=== PATIENT | female | born 1945 ===

== ENCOUNTER 2020-07-24 10:15 | Inpatient (IN) | payer OTHER ==
[~2020-07-24] VITALS: Ht 165.1 cm; Wt 80.7 kg
[2020-07-24] MEDS ORDERED: DOSTINEX PO (12:22)
[2020-07-24] MEDS ORDERED: SERAQUEL PO (12:22)
[2020-07-24] MEDS ORDERED: FOSAMAX PO (12:23)
[2020-07-24] MEDS ORDERED: TOPAMAX25 MG PO (12:23)
[2020-07-24] MEDS ORDERED: CAMBIA50 MG PO (12:24)
[2020-07-24] MEDS ORDERED: SIMVASTATIN5 MG PO (12:25)
[2020-07-30] MEDS ORDERED: MECLIZINE HCL25 MG (07:57)
[2020-07-30] MEDS ORDERED: QUETIAPINE FUM100 MG (07:58)
[2020-07-30] MEDS ORDERED: NAPROXEN500 MG (07:58)
[2020-07-30] MEDS ORDERED: LIDOCAINE1 EACH (07:58)
[2020-07-30] MEDS ORDERED: REMINYL8 MG (07:58)
[2020-07-30] MEDS ORDERED: ESOMEPRAZOLE MA40 MG (07:59)
[2020-07-30] MEDS ORDERED: SIMVASTATIN20 MG (07:59)
[2020-07-30] MEDS ORDERED: ZANAFLEX2 MG (07:59)
[2020-07-30] MEDS ORDERED: CABERGOLINE0.5 MG (07:59)
[2020-07-30] MEDS ORDERED: MONTELUKAST SOD10 MG (07:59)
[2020-07-30] MEDS ORDERED: ALENDRONATE SOD70 MG (08:00)
[2020-07-30] MEDS ORDERED: LANSOPRAZOLE30 MG (08:00)
[2020-07-30] MEDS ORDERED: GABAPENTIN600 MG (08:00)
[2020-07-30] MEDS ORDERED: DICLOFENAC SOD100 GM (08:00)
[2020-08-03] MEDS ORDERED: PERCOCET 5-3251 EACH PO (11:22)
== END 2020-08-03 12:15 | disposition home or self-care (01) | DRG 331 ==
LOC: SURH 07-29 10:15 → O/R 07-30 05:58 → SURG 07-30 05:58 → EDBD 07-30 10:15 → SURH 07-30 10:15 → SURG 08-03 12:15
PROVIDERS: ADMIT Surgery; ATTEND Surgery
PROC: 07BB4ZZ Excision of Mesenteric Lymphatic, Percutaneous Endoscopic Approach (ICD-10-PCS; 2020-07-30)
PROC: 0DTF4ZZ Resection of Right Large Intestine, Percutaneous Endoscopic Approach (ICD-10-PCS; principal; 2020-07-30 18:30)
DX: C18.2 Malignant neoplasm of ascending colon (principal); D12.2 Benign neoplasm of ascending colon; R59.0 Localized enlarged lymph nodes; E78.5 Hyperlipidemia, unspecified

== ENCOUNTER 2020-07-29 06:00 | Day surgery (SDC) | payer OTHER ==
[~2020-07-29 06:00] MED LIST: CAMBIA50 MG PO; DOSTINEX PO; FOSAMAX PO; SERAQUEL PO; SIMVASTATIN5 MG PO; TOPAMAX25 MG PO
[2020-07-30] MEDS ORDERED: MECLIZINE HCL25 MG (07:57)
[2020-07-30] MEDS ORDERED: LIDOCAINE1 EACH (07:58)
[2020-07-30] MEDS ORDERED: NAPROXEN500 MG (07:58)
[2020-07-30] MEDS ORDERED: REMINYL8 MG (07:58)
[2020-07-30] MEDS ORDERED: QUETIAPINE FUM100 MG (07:58)
[2020-07-30] MEDS ORDERED: CABERGOLINE0.5 MG (07:59)
[2020-07-30] MEDS ORDERED: ESOMEPRAZOLE MA40 MG (07:59)
[2020-07-30] MEDS ORDERED: MONTELUKAST SOD10 MG (07:59)
[2020-07-30] MEDS ORDERED: SIMVASTATIN20 MG (07:59)
[2020-07-30] MEDS ORDERED: ZANAFLEX2 MG (07:59)
[2020-07-30] MEDS ORDERED: DICLOFENAC SOD100 GM (08:00)
[2020-07-30] MEDS ORDERED: ALENDRONATE SOD70 MG (08:00)
[2020-07-30] MEDS ORDERED: LANSOPRAZOLE30 MG (08:00)
[2020-07-30] MEDS ORDERED: GABAPENTIN600 MG (08:00)
== END 2020-07-29 10:05 | disposition home or self-care (01) ==
LOC: EDBD → AMB-ENDOS 06:00
PROVIDERS: ATTEND Surgery
DX: K62.89 Other specified diseases of anus and rectum (principal); Z20.822 Contact with and (suspected) exposure to COVID-19